=== PATIENT | female | born 1985 | race Two or more races ===

== ENCOUNTER 2023-12-25 16:43 | Emergency (ER) | payer OTHER ==
[~2023-12-25] VITALS: Ht 157.5 cm; Wt 54.8 kg
[2023-12-25 19:02] VITALS: BP 99/70; PULSE 71; RESP 15; TEMP 98.6; O2SAT 97
== END 2023-12-25 19:18 | disposition home or self-care (01) ==
LOC: ER 16:43
DX: S62.665A Nondisplaced fracture of distal phalanx of left ring finger, initial encounter for closed fracture (principal); W23.0XXA Caught, crushed, jammed, or pinched between moving objects, initial encounter; Y93.89 Activity, other specified; Y92.89 Other specified places as the place of occurrence of the external cause; Y99.8 Other external cause status
CPT/HCPCS: 29130; 73130